=== PATIENT | male | born 1945 | race Caucasian/White ===

== ENCOUNTER 2021-03-28 01:10 | Emergency (ER) | payer MEDICARE ==
[~2021-03-28] VITALS: Ht 177.8 cm; Wt 98.0 kg
[~2021-03-28 01:10] MED LIST: AMARYL4 MG PO; AMIODARONE HCL200 MG PO; ASPIRIN EC81 MG PO; ASPIRIN ENTERI325 MG PO; BENADRYL25 M1 PO; BUMETANIDE1 MG PO; COREG12.5 MG PO; ELIQUIS2.5 MG PO; FAMOTIDINE20 MG PO; FLOMAX0.4 MG PO; FLUTICASONE P15.8 ML; FUROSEMIDE40 MG PO; LASIX40 MG PO; LASIX80 MG PO; LISINOPRIL5 MG PO; LOPERAMIDE2 MG PO; METFORMIN HCL500 MG PO; METOPROLOL TART25 MG PO; METOPROLOL TART50 MG PO; NIFEDIPINE ER30 M1 PO; POTASSIUM CHLO20 ME1 PEG; RAYALDEE30 MCG PO; SIMVASTATIN40 MG PO; TIZANIDINE HCL4 MG PO; ULTRAM 50MG50 MG PO; VOLTAREN100 GM TP; XOPENEX1.25 MG/3 INH; ZOLOFT50 MG PO
[2021-03-28] MEDS ORDERED: SODIUM CHLORIDE 0.9% 1000ML 1,000 ML IV STA (01:14)
[2021-03-28] MEDS ORDERED: ONDANSETRON HCL INJ 2MG/ML 2ML 2 MG/ML VIAL IV PRN (01:15)
[2021-03-28 01:35] LABS: BASOPHILS # (AUTO) 0.1 (0.0-0.1); BASOPHILS % 0.7 % (0.0-1.0); EOSINOPHILS # (AUTO) 0.1 (0.0-0.4); EOSINOPHILS % 1.1 % (0.0-6.0); HEMATOCRIT 33.6 % (38.2-49.6); HEMOGLOBIN 10.4 g/dL (14.0-18.0); LYMPHOCYTES # (AUTO) 0.8 (1.0-3.2); LYMPHOCYTES % 6.7 % (18.0-39.1); MEAN CORPUSCULAR HEMOGLOBIN 27.5 pg (28-32); MEAN CORPUSCULAR VOLUME 88.9 fL (81-99); MONOCYTES # (AUTO) 0.9 (0.2-0.8); MONOCYTES % 7.9 % (4.4-11.3); NEUTROPHILS # (AUTO) 9.7 (2.1-6.9); NEUTROPHILS % 83.1 % (38.7-80.0); PLATELET COUNT 265 x10e3/uL (140-360); RED BLOOD COUNT 3.78 x10e6/uL (4.3-5.7)
[2021-03-28 01:55] LABS: ALBUMIN 3.3 g/dL (3.5-5.0); ALBUMIN/GLOBULIN RATIO 0.8 (0.8-2.0); ANION GAP 17.9 mmol/L (8-16); CALCIUM 8.8 mg/dL (8.4-10.2); CREATININE, SERUM 3.24 mg/dL (0.72-1.25); POTASSIUM 3.9 mmol/L (3.5-5.1)
[2021-03-28] MEDS ORDERED: ONDANSETRON HCL INJ 2MG/ML 2ML 2 MG/ML VIAL ONE (01:57)
[2021-03-28] MEDS ORDERED: DIATRIZOATE MEGL/DIATRIZOA SOD 30 ML BTL PO ONE (02:22)
[2021-03-28] MEDS ORDERED: LACTULOSE20 GM/30 M PO (04:15)
== END 2021-03-28 07:23 | disposition home or self-care (01) ==
LOC: ER 01:56 → MERGE 01:56 → ER 07:23
DX: K59.00 Constipation, unspecified (principal); R10.9 Unspecified abdominal pain; I10 Essential (primary) hypertension; I50.9 Heart failure, unspecified; I48.91 Unspecified atrial fibrillation; I25.10 Atherosclerotic heart disease of native coronary artery without angina pectoris; N18.9 Chronic kidney disease, unspecified; M54.9 Dorsalgia, unspecified; G89.29 Other chronic pain; I25.2 Old myocardial infarction
CPT/HCPCS: 36415; 74176; 80053; 83690; 85025; 99284; J2405; J7030